=== PATIENT | female | born 1995 | race Caucasian/White ===

== ENCOUNTER 2017-09-19 06:39 | Emergency (ER) | payer OTHER ==
[~2017-09-19] VITALS: Ht 154.9 cm; Wt 49.9 kg
[2017-09-19 06:45] VITALS: BP 126/70
--- NOTE | 2017-09-19 06:56 | NUR ---
patient ambulated to bed 2
--- NOTE | 2017-09-19 06:56 | NUR ---
PATIENT PRESENTS TO ED WITH painful urination x1 day. patient states going to the bathroom all night long and was unable to sleep. PT DENIES N/V/D; SKIN IS PINK/WARM/DRY; AAOX4 WITH EVEN AND STEADY GAIT; LUNGS CLEAR BL; HR EVEN AND REGULAR; PT DENIES ANY FEVER, CP, SOB, OR COUGH AT THIS TIME; PATIENT STATES PAIN OF 6/10 AT THIS TIME; VSS; PATIENT POSITIONED FOR COMFORT; HOB ELEVATED; BEDRAILS UP X1; BED DOWN. ER MD MADE AWARE OF PT STATUS.
--- NOTE | 2017-09-19 07:12 | NUR ---
PT. IN BED RR EVEN AND UNLABORED, BED IN LOWEST POSITION, FAMILY MEMBER AT BEDSIDE. WILL CONTINUE TO MONITOR.
--- NOTE | 2017-09-19 07:27 | NUR ---
MD IN ROOM EVALUATING PATIENT.
[2017-09-19 07:37] VITALS: BP 126/70
--- NOTE | 2017-09-19 07:37 | NUR ---
Patient discharged with v/s stable. Written and verbal after care instructions given and explained. Patient alert, oriented and verbalized understanding of instructions. Ambulatory with steady gait. All questions addressed prior to discharge. ID band removed. Patient advised to follow up with PMD. Rx of NITROFURANTOIN given. Patient educated on indication of medication including possible reaction and side effects. Opportunity to ask questions provided and answered.
== END 2017-09-19 07:37 | disposition home or self-care (01) ==
LOC: MED 06:39
DX: N39.0 Urinary tract infection, site not specified (principal); Z91.018 Allergy to other foods
CPT/HCPCS: 81002; 81025; 99283

== ENCOUNTER 2018-05-31 14:56 | Emergency (ER) | payer OTHER ==
[~2018-05-31] VITALS: Ht 154.9 cm; Wt 50.5 kg
[2018-05-31 15:15] VITALS: BP 107/73
[2018-05-31 16:50] VITALS: BP 112/66
--- NOTE | 2018-05-31 16:50 | NUR ---
Patient discharged with v/s stable. Written and verbal after care instructions given and explained. Patient alert, oriented and verbalized understanding of instructions. Ambulatory with steady gait. All questions addressed prior to discharge. ID band removed. Patient advised to follow up with PMD. Rx of KEFLEX/MOTRIN given. Patient educated on indication of medication including possible reaction and side effects. Opportunity to ask questions provided and answered.
== END 2018-05-31 16:50 | disposition home or self-care (01) ==
LOC: MED 14:56
DX: J02.9 Acute pharyngitis, unspecified (principal); N39.0 Urinary tract infection, site not specified; R51 Headache
CPT/HCPCS: 81002; 81025; 99283

== ENCOUNTER 2018-06-23 14:52 | Emergency (ER) | payer OTHER ==
[~2018-06-23] VITALS: Ht 157.5 cm; Wt 51.7 kg
[2018-06-23 15:20] VITALS: BP 106/68
--- NOTE | 2018-06-23 15:22 | NUR ---
FLU AND STREP SAMPLE COLLECTED AND SEND TO THE LAB
--- NOTE | 2018-06-23 15:36 | NUR ---
PT TO ER BED 10
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
--- NOTE | 2018-06-23 16:50 | NUR ---
Patient being evaluated by physician at bedside.
[2018-06-23] MEDS ORDERED: OSELTAMIVIR PHOSPHATE 75 MG CAP PO ONE (16:55)
[2018-06-23] MEDS ORDERED: DEXAMETHASONE 10 MG/ML VIAL IM ONE (16:55)
[2018-06-23] MEDS ORDERED: ALBUTEROL SULFATE/IPRATROPIU 3 ML SOL IH ONE (16:55)
[2018-06-23] MEDS ORDERED: KETOROLAC 60 MG/2 ML VIAL IM ONE (16:55)
--- NOTE | 2018-06-23 17:04 | NUR ---
HHN AND RESPIRATORY DRUG GIVEN ORDERED
--- NOTE | 2018-06-23 17:05 | NUR ---
RT AT BEDSIDE
[2018-06-23 17:57] VITALS: BP 106/68
--- NOTE | 2018-06-23 17:57 | NUR ---
Patient discharged with v/s stable. Written and verbal after care instructions given and explained. Patient alert, oriented and verbalized understanding of instructions. Ambulatory with steady gait. All questions addressed prior to discharge. ID band removed. Patient advised to follow up with PMD. Rx of PROMETHAZINE, TAMIFLU, PRELONE, MOTRIN given. Patient educated on indication of medication including possible reaction and side effects. Opportunity to ask questions provided and answered.
== END 2018-06-23 17:57 | disposition home or self-care (01) ==
LOC: MED 14:52
DX: J10.1 Influenza due to other identified influenza virus with other respiratory manifestations (principal); Z91.018 Allergy to other foods
CPT/HCPCS: 81002; 81025; 87081; 87804; 94640; 96372; 99284; J1100; J1885; J7620

== ENCOUNTER 2018-12-22 08:03 | Emergency (ER) | payer OTHER ==
[~2018-12-22] VITALS: Ht 154.9 cm; Wt 51.3 kg
[2018-12-22 08:16] VITALS: BP 112/74
[2018-12-22 10:45] VITALS: BP 101/71
== END 2018-12-22 10:45 | disposition home or self-care (01) ==
LOC: MED 08:03
DX: J02.9 Acute pharyngitis, unspecified (principal); Z91.018 Allergy to other foods
CPT/HCPCS: 81002; 81025; 86308; 87081; 99283

== ENCOUNTER 2018-12-26 13:46 | Emergency (ER) | payer OTHER ==
[~2018-12-26] VITALS: Ht 154.9 cm; Wt 51.3 kg
[2018-12-26 13:50] VITALS: BP 136/85
--- NOTE | 2018-12-26 13:54 | NUR ---
PT TO WAIT IN ER [facility]. AFEBRILE. AA0X4. VSS
--- NOTE | 2018-12-26 15:10 | NUR ---
PT AMB TO BED 5 WITH STEADY GAIT
--- NOTE | 2018-12-26 15:15 | NUR ---
C/O FEVER, BODY ACHES, AND LOW APPETITE. AFEBRILE, ORAL TEMP 99.4. WAS SEEN HERE A COUPLE DAYS AGO AND WAS PRESCRIBED COUGH SYRUP AND IBUPROFEN. PATIENT STATES SHE DOES NOT HAVE A COUGH BUT CONTINUES TO HAVE A FEVER. AA0X4. ERMD TO SEE PT. PMH- ANXIETY RX- TOOK IBUPROFEN 30 MIN PRIOR TO ARRIVAL
--- NOTE | 2018-12-26 16:00 | NUR ---
DR IGLESIAS RE EVALUATING PT
--- NOTE | 2018-12-26 16:06 | NUR ---
URINE DIP COMPLETED
[2018-12-26 16:23] VITALS: BP 128/72
--- NOTE | 2018-12-26 16:23 | NUR ---
Patient discharged with v/s stable. Written and verbal after care instructions given and explained. Patient alert, oriented and verbalized understanding of instructions. Ambulatory with steady gait. All questions addressed prior to discharge. ID band removed. Patient advised to follow up with PMD. Rx of NAPROXEN, AZITHROMYCIN given. Patient educated on indication of medication including possible reaction and side effects. Opportunity to ask questions provided and answered.
== END 2018-12-26 16:23 | disposition home or self-care (01) ==
LOC: MED 13:46
DX: J06.9 Acute upper respiratory infection, unspecified (principal); F41.9 Anxiety disorder, unspecified; Z91.018 Allergy to other foods
CPT/HCPCS: 81002; 81025; 99283

== ENCOUNTER 2019-03-26 21:04 | Emergency (ER) | payer OTHER ==
[~2019-03-26] VITALS: Ht 154.9 cm; Wt 51.7 kg
[2019-03-26 21:09] VITALS: BP 114/83
--- NOTE | 2019-03-26 22:29 | NUR ---
PATIENT SITTING IN CHAIR IN LOBBY. STILL DENIES PAIN OR TROUBLE WITH VISION.
--- NOTE | 2019-03-27 00:08 | NUR ---
PATIENT REPORTS NO CHANGES. SITTING UP IN CHAIR. AAO.
--- NOTE | 2019-03-27 00:23 | NUR ---
TREVOR SEEING DOCTOR IN TRIAGE ROOM.
--- NOTE | 2019-03-27 00:26 | NUR ---
PATIENT AAO, NO TROUBLE SEEING, CONTACTS SEEN IN EYES. SITTING UP IN CHAIR. DOCTOR AT CHAIRSIDE, ASSESSING PATIENT.
[2019-03-27 00:40] VITALS: BP 110/80
--- NOTE | 2019-03-27 00:41 | NUR ---
Patient discharged with v/s stable. Written and verbal after care instructions given and explained. Patient verbalized understanding. Ambulatory with steady gait. All questions addressed prior to discharge. Advised to follow up with PMD.
== END 2019-03-27 00:40 | disposition home or self-care (01) ==
LOC: MED 21:04
DX: H44.7 Retained (old) intraocular foreign body, nonmagnetic (principal); Z91.018 Allergy to other foods
CPT/HCPCS: 99282

== ENCOUNTER 2020-02-15 20:30 | Emergency (ER) | payer OTHER ==
[~2020-02-15] VITALS: Ht 154.9 cm; Wt 52.2 kg
[2020-02-15 20:33] VITALS: BP 104/68
--- NOTE | 2020-02-15 20:37 | NUR ---
To ED bed 07
--- NOTE | 2020-02-15 20:39 | NUR ---
PT AMBUALATED TO RESTROOM WITH STEADY GAIT.
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
[2020-02-15 21:17] LABS: BILIRUBIN,URINE NEGATIVE (NEGATIVE); BLOOD, URINE 1+ (NEGATIVE); LEUKOCYTE ESTERASE ,URINE TRACE (NEGATIVE); NITRITE, URINE NEGATIVE (NEGATIVE); PH,URINE 5.5 (5.0-9.0); UGLUCOSE NEGATIVE (NEGATIVE)
--- NOTE | 2020-02-15 21:19 | NUR ---
LAB AT BEDSIDE.
[2020-02-15 21:21] LABS: APPEARANCE,URINE HAZY (CLEAR); COLOR,URINE STRAW (YELLOW)
--- NOTE | 2020-02-15 21:21 | NUR ---
US AT BEDSIDE. PT PLACED IN GOWN.
[2020-02-15 21:28] LABS: BASOPHILS % (AUTO) 0.2 % (0.0-2.0); EOSINOPHILS # (AUTO) 0.2 K/uL (0-0.4); EOSINOPHILS % (AUTO) 1.9 % (0.0-4.0); HEMATOCRIT 36.5 % (36-48); HEMOGLOBIN 12.3 g/dL (12.0-16.0); LYMPHOCYTES # (AUTO) 2.6 K/uL (2.5-16.5); LYMPHOCYTES % (AUTO) 24.7 % (20.5-51.1); MEAN CORPUSCULAR HEMOGLOBIN 29 pg (27-31); MEAN CORPUSCULAR HGB CONC 34 g/dL (33-37); MEAN CORPUSCULAR VOLUME 85.2 fL (80-94); MONOCYTES # (AUTO) 0.7 K/uL (0.8-1.0); MONOCYTES % (AUTO) 6.6 % (1.7-9.3); NEUTROPHILS # (AUTO) 7.1 K/uL (1.8-7.7); NEUTROPHILS % (AUTO) 66.6 % (42.2-75.2); PLATELET COUNT (AUTO) 260 K/uL (140-450); RED BLOOD CELL COUNT(AUTO) 4.29 MIL/uL (4.20-5.40); RED CELL DISTRIBUTION WIDTH 12.9 % (11.6-13.7); WHITE BLOOD COUNT (AUTO) 10.6 K/uL (4.8-10.8)
[2020-02-15 21:34] LABS: RBC,URINE 0-5 /HPF (0-5); WBC,URINE 0-5 /HPF (0-5)
[2020-02-15 21:43] LABS: ALBUMIN 3.8 g/dL (3.4-5.0); ANION GAP 14.5 (8-16); CARBON DIOXIDE 25.3 mmol/L (21-32); CREATININE 0.6 mg/dL (0.6-1.3); POTASSIUM 3.8 mmol/L (3.5-5.1); TOTAL BILIRUBIN 0.2 mg/dL (0.0-1.0)
--- NOTE | 2020-02-15 22:01 | NUR ---
PT AMBULATED TO RESTROOM WITH STEADY GAIT.
--- NOTE | 2020-02-15 22:45 | NUR ---
Pelvic exam performed by ER MD VERMA with Heather CASTRO at bedside for entire examination. Patient tolerated pelvic procedure well. Patient assisted to position of comfort after examination. Cultures collected and sent to lab.
[2020-02-15 23:48] VITALS: BP 116/67
[2020-02-18 06:06] LABS: CHLAMYDIA TRACHOMATIS AMP DNA Negative (Negative)
== END 2020-02-15 23:48 | disposition home or self-care (01) ==
LOC: MED 20:30
DX: O23.41 Unspecified infection of urinary tract in pregnancy, first trimester (principal); O26.891 Other specified pregnancy related conditions, first trimester; Z3A.01 Less than 8 weeks gestation of pregnancy; Z91.018 Allergy to other foods
CPT/HCPCS: 36415; 76801; 80053; 81001; 81025; 83690; 84702; 85025; 87086; 87210; 87491; 99284; Q0092

== ENCOUNTER 2020-02-25 19:25 | Emergency (ER) | payer OTHER ==
[~2020-02-25] VITALS: Ht 154.9 cm; Wt 55.8 kg
[2020-02-25 19:29] VITALS: BP 134/79
--- NOTE | 2020-02-25 19:40 | NUR ---
Pt ambulated to ER bed 07
--- NOTE | 2020-02-25 19:51 | NUR ---
ERPA AT BEDSIDE FOR MEDICAL EVALUATION.
--- NOTE | 2020-02-25 20:10 | NUR ---
Female Bill Recapitulation Clerk accompanied female patient for Pelvic Exam administered by LUCILA HARRISON, wet mount and pelvic culture collected at this time.
--- NOTE | 2020-02-25 20:10 | NUR ---
ERPA AT BEDSIDE FOR PELVIC EXAMINATION WITH MATTHEW ESPINOSA
--- NOTE | 2020-02-25 20:15 | NUR ---
pelvic wet mount and culture walked to lab.
--- NOTE | 2020-02-25 20:21 | NUR ---
No wound noted , wound assessment not need at this time.
[2020-02-25] MEDS ORDERED: DOPPLER MC ONE ×2 (20:47→20:49)
[2020-02-25 21:18] VITALS: BP 134/79
--- NOTE | 2020-02-25 21:18 | NUR ---
Patient discharged with v/s stable. Written and verbal after care instructions given and explained. Patient alert, oriented and verbalized understanding of instructions. Ambulatory with steady gait. All questions addressed prior to discharge. ID band removed. Patient advised to follow up with PMD. Rx of clindamycin phosphate cream given. Patient educated on indication of medication including possible reaction and side effects. Opportunity to ask questions provided and answered.
== END 2020-02-25 21:18 | disposition home or self-care (01) ==
LOC: MED 19:25
DX: O34.61 Maternal care for abnormality of vagina, first trimester (principal); Z3A.01 Less than 8 weeks gestation of pregnancy; Z91.018 Allergy to other foods
CPT/HCPCS: 81002; 81025; 87070; 87205; 87210; 99284

== ENCOUNTER 2020-03-12 19:46 | Emergency (ER) | payer OTHER ==
[~2020-03-12] VITALS: Ht 154.9 cm; Wt 55.3 kg
[2020-03-12 20:00] VITALS: BP 112/65
--- NOTE | 2020-03-12 20:03 | NUR ---
TO LOBBY AMBULATORY
--- NOTE | 2020-03-12 20:53 | NUR ---
1ST CALL FOR PT IN LOBBY AND OUTSIDE WITH NO ANSWER.
--- NOTE | 2020-03-12 20:56 | NUR ---
2ND CALL FOR PT IN LOBBY AND OUTSIDE WITH NO ANSWER.
--- NOTE | 2020-03-12 21:00 | NUR ---
PATIENT LEFT WITHOUT BEING SEEN BY DR. TEAGUE. NO FURTHER CARE PROVIDED FOR PATIENT.
== END 2020-03-12 21:00 | disposition left against medical advice (07) ==
LOC: MED 19:46
DX: F41.9 Anxiety disorder, unspecified (principal); Z53.21 Procedure and treatment not carried out due to patient leaving prior to being seen by health care provider

== ENCOUNTER 2020-04-13 11:45 | Emergency (ER) | payer OTHER ==
[~2020-04-13] VITALS: Ht 154.9 cm; Wt 56.7 kg
[2020-04-13 12:08] VITALS: BP 112/68
--- NOTE | 2020-04-13 14:11 | NUR ---
PT C/O LOWER BACK PAIN ACCOMPANIED BY FREQUENCY, URGENCY, AND MILD BURNING SENSATION OF URINATION FOR 7 DAYS. PT HAS BEEN TX WITH MACROBID AND KEFLEX WITH MILD IMPROVEMENT. DENIES FEVER, CHILLS, N/V/D, OR SICK CONTACT. PT IS 14 WKS OF . A1 STERLING: 10/10/2020, LMP: 01/04/2020. PMH: JONO
[2020-04-13 14:40] LABS: BASOPHILS % (AUTO) 0.3 % (0.0-2.0); EOSINOPHILS # (AUTO) 0.1 K/uL (0-0.4); EOSINOPHILS % (AUTO) 1.3 % (0.0-4.0); HEMATOCRIT 36.6 % (36-48); HEMOGLOBIN 12.3 g/dL (12.0-16.0); LYMPHOCYTES # (AUTO) 1.6 K/uL (2.5-16.5); LYMPHOCYTES % (AUTO) 16.9 % (20.5-51.1); MEAN CORPUSCULAR HEMOGLOBIN 29 pg (27-31); MEAN CORPUSCULAR HGB CONC 34 g/dL (33-37); MEAN CORPUSCULAR VOLUME 86.4 fL (80-94); MONOCYTES # (AUTO) 0.7 K/uL (0.8-1.0); MONOCYTES % (AUTO) 7.1 % (1.7-9.3); NEUTROPHILS # (AUTO) 7.2 K/uL (1.8-7.7); NEUTROPHILS % (AUTO) 74.4 % (42.2-75.2); PLATELET COUNT (AUTO) 247 K/uL (140-450); RED BLOOD CELL COUNT(AUTO) 4.23 MIL/uL (4.20-5.40); RED CELL DISTRIBUTION WIDTH 13.5 % (11.6-13.7); WHITE BLOOD COUNT (AUTO) 9.6 K/uL (4.8-10.8)
[2020-04-13 15:01] LABS: ALBUMIN 3.4 g/dL (3.4-5.0); ANION GAP 13.7 (8-16); CARBON DIOXIDE 26.1 mmol/L (21-32); CREATININE 0.5 mg/dL (0.6-1.3); POTASSIUM 3.8 mmol/L (3.5-5.1); TOTAL BILIRUBIN 0.3 mg/dL (0.0-1.0)
--- NOTE | 2020-04-13 16:08 | NUR ---
Patient seated upright awake and alert, minimal pain at this time. VSS
[2020-04-13 17:42] VITALS: BP 115/71
== END 2020-04-13 17:43 | disposition home or self-care (01) ==
LOC: MED 11:45
DX: O23.41 Unspecified infection of urinary tract in pregnancy, first trimester (principal); Z3A.14 14 weeks gestation of pregnancy; Z91.018 Allergy to other foods
CPT/HCPCS: 36415; 76770; 80053; 81002; 85025; 99284

== ENCOUNTER 2020-04-27 14:35 | Emergency (ER) | payer OTHER ==
[~2020-04-27] VITALS: Ht 154.9 cm; Wt 55.9 kg
[2020-04-27 14:51] VITALS: BP 116/69
[2020-04-27 15:39] LABS: BASOPHILS % (AUTO) 0.3 % (0.0-2.0); EOSINOPHILS # (AUTO) 0.1 K/uL (0-0.4); HEMATOCRIT 35.5 % (36-48); HEMOGLOBIN 11.9 g/dL (12.0-16.0); LYMPHOCYTES # (AUTO) 1.9 K/uL (2.5-16.5); LYMPHOCYTES % (AUTO) 17.9 % (20.5-51.1); MEAN CORPUSCULAR HEMOGLOBIN 29 pg (27-31); MEAN CORPUSCULAR HGB CONC 34 g/dL (33-37); MEAN CORPUSCULAR VOLUME 86.9 fL (80-94); MONOCYTES # (AUTO) 0.7 K/uL (0.8-1.0); MONOCYTES % (AUTO) 6.4 % (1.7-9.3); NEUTROPHILS # (AUTO) 7.8 K/uL (1.8-7.7); NEUTROPHILS % (AUTO) 74.4 % (42.2-75.2); PLATELET COUNT (AUTO) 248 K/uL (140-450); RED BLOOD CELL COUNT(AUTO) 4.08 MIL/uL (4.20-5.40); WHITE BLOOD COUNT (AUTO) 10.5 K/uL (4.8-10.8)
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
[2020-04-27 17:29] VITALS: BP 116/69
== END 2020-04-27 17:29 | disposition home or self-care (01) ==
LOC: MED 14:35
DX: O44.02 Complete placenta previa NOS or without hemorrhage, second trimester (principal); O26.892 Other specified pregnancy related conditions, second trimester; R10.30 Lower abdominal pain, unspecified; Z91.018 Allergy to other foods; Z3A.16 16 weeks gestation of pregnancy; V89.2XXA Person injured in unspecified motor-vehicle accident, traffic, initial encounter; Y93.89 Activity, other specified; Y92.89 Other specified places as the place of occurrence of the external cause; Y99.8 Other external cause status
CPT/HCPCS: 36415; 76805; 81002; 84702; 85025; 86900; 86901; 99284